=== PATIENT | female | born 1935 | race Caucasian/White ===

== ENCOUNTER 2019-05-12 14:51 | Emergency (ER) | payer MEDICARE, OTHER ==
--- NOTE | 2019-05-12 16:14 | EDM.PDOC ---
ED HPI GENERAL MEDICAL PROBLEM - General Chief Complaint: Cardiovascular Problem Stated Complaint: SOB Time Seen by Provider: 05/12/19 14:56 Source of Information: Reports: Patient History Limitations: Reports: No Limitations - History of Present Illness INITIAL COMMENTS - FREE TEXT/NARRATIVE: Off and on chest pain for the last month. Denies increasing SOB Some "anxiety" Tried Tums, didn't help. No hx of CAD. Onset: Gradual Duration: Day(s): Location: Reports: Chest Quality: Reports: Ache Severity: Mild Improves with: Reports: None Worsens with: Reports: None Treatments CAMPGROUND HAND: Reports: Other (see below) (TUMS) - Related Data Allergies Allergy/AdvReac Type Severity Reaction Status Date / Time No Known Allergies Allergy Verified 05/12/19 15:31 Home Meds: Home Meds Docusate Calcium [Stool Softener] 2 tab PO DAILY PRN 07/16/15 [History] Flaxseed/Omega3,6,9/Fatty Acid [Flax Seed Oil 1,300 mg Softgel] 1 tab PO DAILY 07/16/15 [History] Ibuprofen 800 mg PO BEDTIME PRN 07/16/15 [History] Lidocaine 5% [Lidoderm 5%] 1 patch TOP DAILY PRN 07/16/15 [History] Metoprolol Tartrate [Lopressor] 25 mg PO BID 07/16/15 [History] Montelukast [Singulair] 10 mg PO BEDTIME 07/16/15 [History] Multivit-Min/FA/Lycopene/Lut [Centrum Silver Tablet] 1 tab PO DAILY 07/16/15 [ History] Nizatidine [Axid] 150 mg PO BID 07/16/15 [History] Orphenadrine [Norflex] 100 mg PO BID PRN 07/16/15 [History] Potassium Gluconate 99 mg PO DAILY 07/16/15 [History] Sennosides [Senokot] 8.6 mg PO DAILY 07/16/15 [History] amLODIPine [Norvasc] 5 mg PO DAILY 07/16/15 [History] metroNIDAZOLE [Metrogel] 1 applic TP BID 07/16/15 [History] Aspirin [Halfprin] 81 mg PO DAILY 05/12/19 [History] Past Medical History HEENT History: Reports: Cataract, Impaired Vision Cardiovascular History: Reports: High Cholesterol, Hypertension Other Respiratory History: allergies Musculoskeletal History: Reports: Arthritis, Osteoarthritis Other Dermatologic History: rosacea - Past Surgical History HEENT Surgical History: Reports: Cataract Surgery, Other (See Below) Other HEENT Surgeries/Procedures: corneal transplants GI Surgical History: Reports: Hernia Repair/Other Other GI Surgeries/Procedures: rectocele Female Surgical History: Reports: Hysterectomy Neurological Surgical History: Reports: C-Spine, Lumbar Spine, Spinal Fusion Musculoskeletal Surgical History: Reports: Arthroscopic Knee, Carpal Tunnel Other Musculoskeletal Surgeries/Procedures:: ctr bilateral Social & Family History - Tobacco Use Smoking Status *Q: Never Smoker - Caffeine Use Caffeine Use: Reports: Coffee - Recreational Drug Use Recreational Drug Use: No ED ROS GENERAL - Review of Systems Review Of Systems: See Below Constitutional: Reports: No Symptoms Respiratory: Reports: Shortness of Breath Cardiovascular: Reports: Chest Pain GI/Abdominal: Reports: No Symptoms Musculoskeletal: Reports: No Symptoms Skin: Reports: No Symptoms Neurological: Reports: No Symptoms Psychiatric: Reports: No Symptoms ED EXAM, GENERAL - Physical Exam Exam: See Below Exam Limited By: No Limitations General Appearance: Alert, WD/WN, No Apparent Distress Head: Atraumatic, Normocephalic Neck: Normal Inspection, Supple, Non-Tender, Full Range of Motion Respiratory/Chest: No Respiratory Distress, Lungs Clear, Normal Breath Sounds Cardiovascular: Regular Rate, Rhythm GI/Abdominal: Normal Bowel Sounds, Soft, Non-Tender Extremities: Normal Inspection, Normal Range of Motion Neurological: Alert, Oriented, CN II-XII Intact, Normal Cognition, Normal Gait Psychiatric: Normal Affect, Normal Mood Skin Exam: Warm, Dry, Intact EKG INTERPRETATION EKG Date: 05/12/19 Time: 16:11 Rhythm: Other (Sinus bradycardia) Comparison: NA - No Prior EKG Course - Vital Signs Last Recorded V/S: Last Vital Signs Temp 95.6 F 05/12/19 17:28 Pulse 65 05/12/19 17:28 Resp 16 05/12/19 17:28 BP 188/79 H 05/12/19 17:28 Pulse Ox 99 05/12/19 17:28 - Orders/Labs/Meds Orders: Active Orders 24 hr Category Date Time Status EKG Documentation Completion [RC] ASDIRECTED Care 05/12/19 15:43 Active Peripheral IV Care [RC] . DIRECTED Care 05/12/19 17:18 Active Peripheral IV Insertion Adult [OM.PC] Stat Oth 05/12/19 17:18 Ordered EKG 12 Lead [EK] Routine Ther 05/12/19 15:43 Ordered Labs: Laboratory Tests 05/12/19 05/12/19 Range/Units 15:43 15:43 WBC 7.6 (4.5-11.0) K/uL RBC 4.53 (3.30-5.50) M/uL Hgb 13.2 (12.0-15.0) g/dL Hct 41.5 (36.0-48.0) % MCV 92 (80-98) fL MCH 29 (27-31) pg MCHC 32 (32-36) % Plt Count 310 (150-400) K/uL Neut % (Auto) 73 H (36-66) % Lymph % (Auto) 16 L (24-44) % Armstrong % (Auto) 8 H (2-6) % Eos % (Auto) 2 (2-4) % Baso % (Auto) 0 (0-1) % Sodium 139 L (140-148) mmol/L Potassium 4.1 (3.6-5.2) mmol/L Chloride 102 (100-108) mmol/L Carbon Dioxide 30 (21-32) mmol/L Anion Gap 11.1 (5.0-14.0) mmol/L BUN 14 (7-18) mg/dL Creatinine 0.9 (0.6-1.0) mg/dL Est Cr Clr Drug Dosing 38.12 mL/min Estimated GFR (MDRD) 60 (>60) Glucose 89 (74-106) mg/dL Calcium 9.2 (8.5-10.1) mg/dL Total Bilirubin 0.3 (0.2-1.0) mg/dL AST 19 (15-37) U/L ALT 28 (12-78) U/L Alkaline Phosphatase 83 (46-116) U/L Troponin I 0.450 H* (0.000-0.056) ng/mL Total Protein 7.1 (6.4-8.2) g/dL Albumin 3.5 (3.4-5.0) g/dL Globulin 3.6 H (2.3-3.5) g/dL Albumin/Globulin Ratio 1.0 L (1.2-2.2) Meds: Medications Discontinued Medications Generic Name Dose Route Start Last Admin Trade Name Freq PRN Reason Stop Dose Admin Aspirin 324 mg 05/12/19 17:18 05/12/19 17:27 Aspirin PO 05/12/19 17:19 324 mg ONETIME ONE Administration Sodium Chloride 10 ml 05/12/19 17:18 Saline Flush FLUSH ASDIRECTED PRN Keep Vein Open - Re-Assessments/Exams Free Text/Narrative Re-Assessment/Exam: 05/12/19 20:10 Troponin was elevated; spoke with [facility], Dr. Hills; she has agreed to accept patient and will consult card; she doesn't recommend heparin at this time; Departure - Departure Time of Disposition: 17:45 Disposition: DC/Tfer to Acute Hospital 02 Reason for Transfer *Q: Other (cardiac services) Condition: Fair Clinical Impression: Chest pain, NSTEMI (non-ST elevated myocardial infarction) Instructions: Nonspecific Chest Pain Referrals: Gretchen Selby PA [Primary Care Provider] - Forms: ED Department Discharge ED Communication - Discussed Case With (1) Discussed Case With (1): Admitting Provider (Dr. Hills, [facility], will be admitted to telemetry) - Problem List & Annotations (1) NSTEMI (non-ST elevated myocardial infarction) SNOMED Code(s): 46200478 Code(s): I21.4 - NON-ST ELEVATION (NSTEMI) MYOCARDIAL INFARCTION Status: Acute Priority: High - Problem List Review Problem List Initiated/Reviewed/Updated: Yes - My Orders Last 24 Hours: My Active Orders 05/12/19 15:43 EKG Documentation Completion [RC] ASDIRECTED EKG 12 Lead [EK] Routine 05/12/19 17:18 Peripheral IV Care [RC] . DIRECTED Peripheral IV Insertion Adult [OM.PC] Stat - Assessment/Plan Last 24 Hours: My Active Orders 05/12/19 15:43 EKG Documentation Completion [RC] ASDIRECTED EKG 12 Lead [EK] Routine 05/12/19 17:18 Peripheral IV Care [RC] . DIRECTED Peripheral IV Insertion Adult [OM.PC] Stat
[2019-05-12] MEDS ORDERED: Sodium Chloride 0.9% 10 ML Syringe FLUSH PRN (17:18)
[2019-05-12] MEDS ORDERED: Aspirin 81 MG Tab.Chew PO ONE (17:18)
[2019-05-12 17:29] VITALS: BP 188/79; PULSE 65
--- NOTE | 2019-05-12 18:06 | CRLCR ---
INDICATION: Chest pain shortness of breath TECHNIQUE: Chest radiograph 1 view COMPARISON: None FINDINGS: Mediastinum: The mediastinum is normal in appearance. The heart silhouette is normal in size and morphology. Lung: Both lungs are unremarkable in appearance. No sign of pleural effusion seen. No pneumothorax is identified. is partially visualized. IMPRESSION: 1. No acute cardiopulmonary disease is seen. Dictated by Valdez Graves MD @ 05/12/2019 6:04:53 PM Dictated by: Valdez Graves MD @ 05/12/2019 18:06:01 (Electronically Signed)
== END 2019-05-12 18:01 ==
LOC: JP.ED 14:51
DX: I21.4 Non-ST elevation (NSTEMI) myocardial infarction (principal); I10 Essential (primary) hypertension; E78.00 Pure hypercholesterolemia, unspecified; Z79.899 Other long term (current) drug therapy; Z88.2 Allergy status to sulfonamides
CPT/HCPCS: 36415; 71045; 80053; 84484; 85025; 93005; 99285; A9270; 93010

== ENCOUNTER 2022-02-02 11:30 | Emergency (ER) | payer MEDICARE, OTHER ==
[2022-02-02 11:45] VITALS: BP 147/73; PULSE 82
== END 2022-02-02 12:30 | disposition home or self-care (01) ==
LOC: JP.ED 11:30
DX: B02.9 Zoster without complications (principal); R51.9 Headache, unspecified; I10 Essential (primary) hypertension; M17.9 Osteoarthritis of knee, unspecified; E78.00 Pure hypercholesterolemia, unspecified; Z79.82 Long term (current) use of aspirin; Z79.899 Other long term (current) drug therapy; Z88.8 Allergy status to other drugs, medicaments and biological substances
CPT/HCPCS: 99282; 99284